=== PATIENT | female | born 1965 | race Caucasian/White ===

== ENCOUNTER 2017-03-06 19:58 | Emergency (ER) | payer MEDICAID ==
[2017-03-06 19:58] VITALS: BMI 47.5
[2017-03-06 20:19] VITALS: BP 137/84; TEMP 98.3
--- NOTE | 2017-03-06 20:20 | C.PDOC ---
History Of Present Illness 52 year old female complains of right ear pain for 3 days. She denies fever, drainage, foreign body sensation, headache, or hearing impairment. Time Seen by Provider: 03/06/17 20:09 Chief Complaint (Nursing): ENT Problem History Per: Patient History/Exam Limitations: None Onset/Duration Of Symptoms: Days (3) Current Symptoms Are (Timing): Still Present Symptoms Have Been: Episodic Past Medical History Reviewed: Historical Data, Nursing Documentation, Vital Signs Vital Signs: Last Vital Signs Temp 98.3 F 03/06/17 20:02 Pulse 85 03/06/17 20:27 Resp 18 03/06/17 20:27 BP 137/84 03/06/17 20:02 Pulse Ox 99 03/06/17 20:27 - Medical History PMH: Anemia, Depression, HTN Surgical History: No Surg Hx Family History: States: Unknown Family Hx - Social History Hx Tobacco Use: No Hx Alcohol Use: No Hx Substance Use: No - Immunization History Hx Tetanus Toxoid Vaccination: Yes Hx Influenza Vaccination: No Hx Pneumococcal Vaccination: No Review Of Systems Constitutional: Negative for: Fever Eyes: Negative for: Pain ENT: Positive for: Ear Pain Cardiovascular: Negative for: Palpitations Respiratory: Negative for: Cough, Shortness of Breath Gastrointestinal: Negative for: Vomiting, Abdominal Pain, Diarrhea Genitourinary: Negative for: Dysuria Skin: Negative for: Rash Neurological: Negative for: Headache, Dizziness Physical Exam - Physical Exam Appears: Non-toxic, No Acute Distress Skin: Warm, Dry Head: Atraumatic, Normacephalic Eye(s): bilateral: Normal Inspection, EOMI Ear(s): Left: Normal, Right: TM Obscured By Wax Nose: Normal, No Flaring Oral Mucosa: Moist Throat: Normal, No Erythema, No Drooling Neck: Normal ROM, No Other Chest: Symmetrical Cardiovascular: Rhythm Regular, No Murmur Respiratory: Normal Breath Sounds, No Wheezing Extremity: Bilateral: Atraumatic, Normal ROM Neurological/Psych: Oriented x3, Normal Speech Gait: Steady ED Course And Treatment O2 Sat by Pulse Oximetry: 96 Medical Decision Making Medical Decision Making: Patient with right ear pain. Exam shows excessive cerumen and unable to view TM. Will prescribe drops to use and recommend another eval by PCP or ENT for possible ear lavage Disposition Counseled Patient/Family Regarding: Need For Followup, Rx Given - Disposition Referrals: Non [facility] Provider, [Primary Care Provider] - Disposition: HOME/ ROUTINE Disposition Time: 20:17 Condition: STABLE Additional Instructions: Aplique 1-3 gotas a la oreja derecha 2-3 veces al da para la eliminacin de cera pocos carpenter Seguimiento con el mddavis o la clnica primaria para ms evaluacin Prescriptions: Carbamide Peroxide [Debrox] 1 drop AD Q8 #1 bottle Instructions: Carbamide Peroxide (Into the ear), Cerumen Impaction (ED) Print Language: SOUTH AFRICAN - POA Present On Arrival: None - Clinical Impression Clinical Impression: Excessive cerumen in right ear canal
[2017-03-06 20:28] VITALS: PULSE 85; RESP 18
[2017-03-06 20:53] VITALS: O2SAT 96
== END 2017-03-06 20:30 | disposition home or self-care (01) ==
LOC: SUPCPDRO 19:58 → C.ER 19:58
DX: H61.21 Impacted cerumen, right ear (principal)